=== PATIENT | male | born 1995 | race American Indian/Alaskan Native ===

== ENCOUNTER 2018-11-25 12:59 | Emergency (ER) | payer SELFPAY ==
[2018-11-25 13:07] VITALS: BP 155/90
--- NOTE | 2018-11-25 13:10 | Emergency Department Report ---
Blank Doc - Documentation Documentation: This is a 23 y.o. male that presents with pain and redness to both eyes. Alexa ent reports sensation of grinding in both eyes. He took contacts out yesterday due to increased pain. He tried clear eye gtts with no improvement of symptoms. Fast track for further evaluation.
--- NOTE | 2019-05-20 14:28 | Emergency Department Report ---
Chief Complaint: Eye Problems Stated Complaint: EYE INFLAMMATION Time Seen by Provider: 11/25/18 13:08 - HPI History of Present Illness: I reviewed documentation. Medical sceening exam performed and completed. He was discharged without treatment or intensive evaluation. - Exam Vital Signs: Vital Signs 11/25/18 13:06 Temperature 99.1 F Pulse Rate 76 Respiratory 18 Rate Blood Pressure 155/90 [Right] O2 Sat by Pulse 98 Oximetry MSE screening note: Focused history and physical exam performed. Due to findings the following was ordered: ED Disposition for MSE Clinical Impression: Encounter for medical screening examination Disposition: Z- MED SCREENING EXAM-LEFT Is pt being admited?: No Does the pt Need Aspirin: No Condition: Stable Referrals: PRIMARY CARE, [Primary Care Provider] - 3-5 Days
== END 2018-11-25 18:43 | disposition left against medical advice (07) ==
LOC: ED 12:59
DX: H57.9 Unspecified disorder of eye and adnexa (principal); Z53.21 Procedure and treatment not carried out due to patient leaving prior to being seen by health care provider